=== PATIENT | male | born 1960 | race Caucasian/White ===

== ENCOUNTER 2016-11-19 07:18 | Day surgery (SDC) | payer MEDICARE, MEDICAID ==
--- NOTE | 2016-11-19 07:10 | History and Physical Report ---
DATE OF EVALUATION: 11/19/2016. CHIEF COMPLAINT AND HISTORY OF CHIEF COMPLAINT: This is a patient with an intractable cervical radiculitis managed by a spinal opioid infusion system with hydromorphone. Over the last number of refills it has been identified with battery depletion. He is here for replacement of the battery. PAST MEDICAL HISTORY: Noncontributory. REVIEW OF SYSTEMS: The patient is appropriate and in no acute distress. The remainder of the systems review shows glasses and headaches. SOCIAL HISTORY: Smoking. FAMILY HISTORY: Coronary artery disease, cerebrovascular disease. PAST SURGICAL HISTORY: Lumbar spinal fusion with implant. ALLERGIES: To be provided. MEDICATIONS ON ADMISSION: To be provided. PHYSICAL EXAMINATION: General: Height is 6 feet inches. Weight is 190 pounds. Vital Signs: Unavailable. HEENT: Within normal limits. Lungs: Clear. Heart: Regular rate and rhythm. Abdomen: Nontender. Musculoskeletal: Examination of the musculoskeletal system shows the pump in the right posterosuperior gluteal margin. The incision is intact. The midline incision for the catheter is intact. Sensory mitchell are intact. Neurologic: Cranial nerves are intact. IMPRESSIONS: 1. CERVICAL LUMBAR RADICULITIS, ICD10 CODE M54.13, M54.16, AND M54.17. 2. IMPLANTED SPINAL INFUSION SYSTEM WITH HYDROMORPHONE, DEPLETED BATTERY. PLANS: The patient is here for replacement of the battery on an outpatient basis. No changes will be made to the infusion characteristics. A catheter revision may be necessary within the pouch to prevent scarring from causing obstruction of the catheter. All of the potential risks, side effects, and complications have been carefully reviewed and discussed. The patient understands and has consented. Daquan Stevenson D.O. Date Time JOB NUMBER: [id number] cc: Dr. Kanchan PEREIRA
[~2016-11-19 07:18] MED LIST: ACETAMINOPHEN 1000MG/100 ML PREMIX IV ONE; CEFAZOLIN 2 Gram 50 ML IVPB ONE; FAMOTIDINE 20MG TABLET PO ONE; HYDROMORPHONE HCL 0.6 GM in 0.9 % SODIUM CHLORIDE 10ML VIA 20 ML IV ONE; HYDROMORPHONE HCL/PF 0.002 MG in 0.9 % SODIUM CHLORIDE 10ML VIA 0.998 ML IVP ONE; MECLIZINE 25 MG TABLET PO ONE; METOCLOPRAMIDE 10 MG TABLET PO ONE
[2016-11-19 07:44] LABS: BLEEDING TIME 5.5 MINUTES (1.5-7.0)
[2016-11-19 07:53] LABS: BASO % 0.3 % (0-6); EOS % 2.6 % (0-6); GRAN % 59.4 % (47-80); HEMATOCRIT 40.5 % (42.0-52.0); HEMOGLOBIN 13.8 gm/dl (14.0-18.0); LYMPH % 30.3 % (16-45); MEAN CELL VOLUME 84.2 fl (81-97); MEAN CORPUSCULAR HEMOGLOBIN 28.6 pg (27-33); MEAN CORPUSCULAR HGB CONC 34.1 g/dl (32-36); MEAN PLATELET VOLUME 10.4 fl (7.4-10.4); MONO % 7.4 % (0-9); PLATELET COUNT 293 K/uL (130-400); RED BLOOD COUNT 4.81 M/uL (4.40-5.70); RED CELL DISTRIBUTION WIDTH 14.4 % (11.5-14.5); WHITE BLOOD COUNT W/O DIFF 8.6 K/uL (4.2-12.2)
[2016-11-19 08:02] LABS: ANION GAP 9.4 (7-16); BLOOD UREA NITROGEN 12 mg/dL (9-20); CARBON DIOXIDE 26.6 mmol/L (22-30); CREATININE 0.8 mg/dL (0.66-1.25); EST GLOMERULAR FILTRATION RATE > 60 ml/min; GLUCOSE,RANDOM 110 mg/dL (70-110)
[2016-11-19 08:05] LABS: INR 0.97
[2016-11-19] MEDS ORDERED: LIDOCAINE 2% MDV (20MG/ML) 20ML VIAL IV ONE (14:00)
[2016-11-19] MEDS ORDERED: BUPIVACAINE 0.5% W/EPI MPF 30 ML VIAL IVP ONE (14:00)
[2016-11-19] MEDS ORDERED: MIDAZOLAM HCL 2MG/2ML VIAL IV ONE (14:00)
[2016-11-19] MEDS ORDERED: OXYCODONE/APAP 10MG-325MG TABLET PO ONE (14:00)
[2016-11-19] MEDS ORDERED: LIDOCAINE 1% W/EPI 1:200,000 MPF 30ML SQ ONE (14:00)
[2016-11-19] MEDS ORDERED: CEFAZOLIN 1G VIAL IM ONE (14:00)
[2016-11-19] MEDS ORDERED: PROPOFOL 10 MG/ML VIAL IV ONE (14:00)
[2016-11-19] MEDS ORDERED: FENTANYL PF 100MCG/2ML VIAL IV ONE (14:00)
--- NOTE | 2016-11-19 17:50 | Operative Note ---
PAIN SERVICE OPERATIVE REPORT DATE OF PROCEDURE: 11/19/2016. PREOPERATIVE DIAGNOSES: 1. CERVICAL RADICULITIS, ICD10 CODE M54.13. 2. INTRASPINAL INFUSION SYSTEM, HYDROMORPHONE, BATTERY DEPLETION. PROCEDURES: 1. Incision, subcutaneous dissection, removal, and replacement of indwelling programmable pump, right posterosuperior gluteal margin. 2. Revision of pump catheter in pouch. 3. Diagnostic myelography with radiologic supervision and interpretation. 4. Placement of pump into pouch with revised catheter, securing to fascia using nonabsorbable suture. 5. Closure of incision with Vicryl for fascia and running subcuticular Vicryl for skin. Dermabond closure. 6. Programming of pump to deliver by continuous infusion hydromorphone at 3.5 mg per day. SURGEON: Daquan Stevenson D.O. ANESTHESIA: Local sedation. ANESTHESIA PROVIDER: Tao Ray CRNA INDICATIONS: This patient presents with a history of intractable cervical radiculitis managed by spinal infusion system with hydromorphone. Due to recent programming efforts demonstrating battery depletion, he is here for battery replacement. DESCRIPTION OF PROCEDURE: Intravenous line, vital sign monitoring, and IV sedation. Prepped and draped with sterile technique. Under imaging, the pump incision at the right posterior gluteal margin was infiltrated. An incision was made and subcutaneous dissection was conducted to the pump. The pump was then from the indwelling catheter. A new pump was placed onto the field filled with hydromorphone 25 mg per mL concentration. The indwelling catheter was inspected, cleared, and from the scar tissue. Due to kinks, a catheter revision was performed, replacing the internal catheter component at the pouch. The new revised catheter was then interfaced to the new pump. A 24-gauge Antony needle was inserted into the access port and 1.0 mL of catheter contents was aspirated, clearing the catheter of opioid and cerebrospinal fluid mixture. Diagnostic myelography was then performed. The resulting flow characteristics were smooth and linear. The catheter tip at T3 identified. With appropriate functionality noted, the pump was placed into the pouch and secured to the fascia using nonabsorbable suture. The incision was closed with Vicryl for the fascia and running subcuticular Vicryl for the skin. The pump was programmed to deliver by continuous infusion hydromorphone 3.5 mg per day. He was transported to the recovery room stable showing no side effects from the procedure or the sedation. DISCHARGE INSTRUCTIONS: 1. The sites will remain clean and dry. No showering or bathing in any way that would disrupt dressings. If this happens, contact the clinic. 2. Standard medications may be resumed including the antibiotic Levaquin 500 mg once a day for 14 days. 3. Spinal opioid side effects including respiratory depression, nausea, vomiting, constipation, urinary retention, lightheadedness, and rash have all been discussed and reviewed. Should they happen, contact the clinic for evaluation or go to the local emergency room. 4. He will be seen in the office within the next five to seven days. The incisions will be evaluated and then he will be cleared for further activities. Until then, his activities should stay low. Daquan Stevenson D.O. Date Time JOB NUMBER: [id number] cc: Dr. Kanchan PEREIRA
== END 2016-11-19 11:55 | disposition home or self-care (01) ==
LOC: SUR 07:18
PROVIDERS: ATTEND Pain Medicine Interventional Pain Medicine
DX: T85.890A Other specified complication of nervous system prosthetic devices, implants and grafts, initial encounter (principal); M54.13 Radiculopathy, cervicothoracic region; F17.200 Nicotine dependence, unspecified, uncomplicated
CPT/HCPCS: 62367; 85025; 85730; 85610; 80048; 85002; 93005; 62350; 62362; 00630; Q9967; J1170; J3010; J0690